=== PATIENT | male | born 1970 | race Caucasian/White ===

== ENCOUNTER → 2017-04-26 | Outpatient (CLI) | payer BC ==
--- NOTE | 2017-04-29 09:19 | RAD ---
EXAM DESCRIPTION: Lumbar Spine 5 Views CLINICAL HISTORY: DISC DEGENERATION OF LUMBAR REGION COMPARISON: MR lumbar spine dated February 04, 2017. TECHNIQUE: AP, bilateral obliques, lateral, and coned-down lateral views of the lumbar spine. FINDINGS: Redemonstration of transitional lumbosacral vertebral body. There is partial lumbarization of S1. Alignment is maintained without evidence of subluxation. There is no acute fracture or bone lesion. There is mild loss of disc height posteriorly at L4-L5 and L5-S1. Moderate facet arthropathy seen at L4-L5 and L5-S1 bilaterally. Mild to moderate neural foraminal stenosis bilaterally. IMPRESSION: Mild degenerative disc disease with moderate facet arthropathy bilaterally at L4-L5 and L5-S1. There is mild to moderate neural foraminal stenosis at L5-S1 bilaterally. Electronically signed by: Tor Garcia MD 04/29/2017 9:18 AM [facility]
== END ==
LOC: RAD 15:15
DX: M51.36 Other intervertebral disc degeneration, lumbar region (principal); M54.5 Low back pain

== ENCOUNTER → 2019-07-08 | Outpatient (CLI) | payer BC ==
--- NOTE | 2019-07-09 10:07 | US ---
EXAM DESCRIPTION: Soft Tissue,Abdomen: ULTRASOUND. CLINICAL HISTORY: LUMP LOWER BACK multiple palpable mass lower right and left back. COMPARISON: None. TECHNIQUE: Transabdominal scanning: verduzco-scale mode. Doppler mode. FINDINGS: Heterogeneous mass is relatively well-circumscribed in the low back on the left side measuring 3.5 x 1.2 x 2.0 cm. Wider than tall orientation and posterior acoustic enhancement. Mass 2 left of the spine similar appearance measuring 2.8 x 0.9 x 1.6 cm. Mass 3 similar appearance. 2.0 x 0.6 x 1.0 cm. On the right side of the spine: Mass 1 with similar appearances other masses. 1.2 x 0.8 x 0.5. mass 2- 2.3 x 0.8 x 0.6 cm. Similar appearance with other masses. Mass 3- 2.0 x 1.1 x 0.5 cm, similar appearance with other masses. IMPRESSION: Multiple bilateral lipomas. Consider follow-up imaging if masses enlarge, become painful, or other clinical findings such as erythema or fever develop. Electronically signed by: Benny Goldstein MD 07/09/2019 10:05 AM [facility]
== END ==
LOC: US 08:23
PROVIDERS: ATTEND Family Medicine
DX: D17.9 Benign lipomatous neoplasm, unspecified (principal)